=== PATIENT | male | born 1935 | race Caucasian/White ===

== ENCOUNTER → 2017-03-08 | Outpatient (CLI) | payer MEDICARE ==
--- NOTE | 2017-03-08 14:20 | XR ---
EXAMINATION TYPE: XR chest 2V DATE OF EXAM: 03/08/2017 1:58 PM COMPARISON: NONE HISTORY: Chronic lymphocytic leukemia per order. Pain throughout body including chest with recent fal l injury per patient. History of sarcoidosis and pacemaker. TECHNIQUE: Frontal and lateral views of the chest are obtained. FINDINGS: Calcified pleural plaques are felt present bilaterally. There is small left pleural effusio n with associated left basilar atelectasis and/or infiltrate. Coronary stents left circumflex distrib ution is noted.. Right lung is clear. The cardiac silhouette size is enlarged with triple lead pacema ker/AICD and atherosclerotic thoracic aorta . Some multilevel spurring in thoracic spine is present. Osseous structures are demineralized. 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 Clinical correl ation advised.
== END | disposition home or self-care (01) ==
LOC: RADXRMAIN 13:38
PROVIDERS: ATTEND Internal Medicine Hematology & Oncology
DX: I25.10 Atherosclerotic heart disease of native coronary artery without angina pectoris (principal); J90 Pleural effusion, not elsewhere classified; J92.9 Pleural plaque without asbestos
CPT/HCPCS: 71020